=== PATIENT | female | born 1960 | race Caucasian/White ===

== ENCOUNTER → 2020-08-07 14:44 | Outpatient (BNVA) | payer BC, SELFPAY | PROVIDERS: Family Provider Family Medicine; PCP Family Medicine; Visit Provider Obstetrics & Gynecology | DX: R30.0 Dysuria (principal); N89.8 Other specified noninflammatory disorders of vagina; N94.9 Unspecified condition associated with female genital organs and menstrual cycle | CPT/HCPCS: 81000; 87070; 87086; 87205; 87210 ==

== ENCOUNTER → 2020-08-31 12:33 | Outpatient (BNVA) | payer BC, SELFPAY | PROVIDERS: Family Provider Family Medicine; PCP Family Medicine; Visit Provider Nurse Practitioner | DX: Z20.822 Contact with and (suspected) exposure to COVID-19 (principal); Z11.59 Encounter for screening for other viral diseases | CPT/HCPCS: 87635; 87880 ==

== ENCOUNTER 2020-10-02 13:56 | Outpatient (CLI) | payer MEDICARE, SELFPAY ==
--- NOTE | 2020-10-02 14:04 | USCV_ITS ---
Rafia Sandhu Age: 60 Gender: F : 1960 Exam Date: 10/02/2020 14:28 Ordering Phys: Julio Sellers DO Technologist: Ailyn Martino [place] [facility] [place] Indication: EDEMA LEG PAIN HISTORY: Lower extremity edema. Lower extremity pain. PROCEDURES: Venous duplex imaging was performed in only the left lower extremity. The following venous structures were evaluated: common femoral vein, profunda vein, proximal portion of the greater saphenous vein, superficial femoral vein, and the popliteal vein. In addition, the posterior tibial and peroneal trunk were evaluated. Serial compression, augmentation maneuvers, and spectral Doppler flow evaluation were performed. FINDINGS: Normal 2-D Doppler and augmentation and compressibility throughout the lower extremity venous structures. Additional imaging through the proximal calf veins also reveals no thrombus. Limited evaluation of the greater saphenous vein is patent with no thrombus. CONCLUSIONS No DVT right lower extremity. Dr. Bethany Owusu DO (Electronically Signed) Final Date: 02 October 2020 16:11 S
== END 2020-10-02 13:57 | disposition home or self-care (01) ==
LOC: RAD 14:01
PROVIDERS: PCP Family Medicine; Visit Provider Family Medicine
DX: R60.0 Localized edema (principal); M79.604 Pain in right leg
CPT/HCPCS: 93971

== ENCOUNTER → 2021-06-29 14:04 | Outpatient (BNVA) | payer MEDICARE, SELFPAY | PROVIDERS: PCP Family Medicine; Visit Provider Nurse Practitioner Family | DX: N95.2 Postmenopausal atrophic vaginitis (principal); N39.0 Urinary tract infection, site not specified | CPT/HCPCS: 81003; 87086 ==

== ENCOUNTER → 2021-08-18 11:56 | Outpatient (BNVA) | payer MEDICARE, SELFPAY | PROVIDERS: PCP Family Medicine; Visit Provider Urology | DX: N39.0 Urinary tract infection, site not specified (principal) | CPT/HCPCS: 81003; 87086 ==

== ENCOUNTER 2021-09-22 15:03 | Outpatient (CLI) | payer MEDICARE, SELFPAY ==
--- NOTE | 2021-09-22 15:19 | XR_ITS ---
WS: [id number] Acute abdomen series, 09/22/2021 Clinical Data: ABD PAIN Comparison: None. Findings: In the chest there are no nodules, masses or effusions. The heart is normal. The pulmonary vascularity is not increased. There is a levoscoliosis of the thoracic spine. No free air is seen beneath the diaphragms. No abnormal intra-abdominal masses or calcifications are seen. There is a dextroscoliosis of the lumbar spine. There is air in the stomach, small bowel and co sharifa but no evidence of obstruction. There is a moderate amount of fecal material throughout the colon . XR/XR acute abdomen series [id number] Impression: Negative acute abdomen series.
== END 2021-09-22 15:04 | disposition home or self-care (01) ==
PROVIDERS: PCP Family Medicine; Visit Provider Clinical Nurse Specialist Adult Health
DX: R10.9 Unspecified abdominal pain (principal)
CPT/HCPCS: 74022

== ENCOUNTER 2022-01-11 20:39 | Emergency (ER) | payer MEDICARE, SELFPAY ==
[2022-01-11] VITALS (7 sets, daily range): BP systolic 113–142; BP diastolic 73–88; PULSE 66–77; RESP 17–18; TEMP 36.9; O2SAT 93–99; BMI 26.5
--- NOTE | 2022-01-11 21:19 | W.ED.ABDPA2 ---
HPI - Abdominal Pain General: Chief Complaint: Abdominal Pain Stated Complaint: abd pain, back pain Time Seen by Provider: 01/11/22 21:19 History of Present Illness: Ms. Sandhu is a 61-year-old lady with history of recurrent UTI and atrial tachycardia presenting to the emergency department due to abdominal pain. Symptom onset was approximately 4 hours prior to arrival at rest and subacute. She endorses severe lower abdominal pain associated with back pain. She has generalized unwell feeling nausea but no vomiting. She has had a normal bowel movement at approximately 4 PM today. She always has urinary symptoms though these are not necessarily worse than baseline. Overall course of symptoms has persisted. No other specific changes in health, exacerbating, or alleviating factors identified. Onset (ago): hour(s) Location: RLQ and LLQ Severity: severe Quality: cramping, stabbing and aching Radiation: back Associated Symptoms: Reports nausea Review of Systems General: Reports: 10 or more systems reviewed and unremarkable except in HPI and below GI: Reports: nausea PFSH ED PFSH: Medical History Cardiac rhythm disturbance History of recurrent UTIs Interstitial cystitis Recurrent UTI Vaginal discharge Surgical History History of bladder surgery Has had bladder distention performed on 2 different occasions. S/P dilation and curettage Family History Mother , at age 75. Lung cancer Hypertension Father , at age 75. Lung cancer Grandmother Diabetes Paternal Family/Other Diabetes Maternal Aunt. Social History Alcohol intake: current Alcohol intake frequency: 0-2 Drinks per Day Marital status: / Current occupational status: retired Physical Exam Const: COMMON NORMALS: alert GENERAL APPEARANCE: cooperative and well developed HENMT: COMMON NORMALS: normocephalic and atraumatic HEAD & SCALP: normocephalic and atraumatic Eye: COMMON NORMALS: conjunctivae normal CONJUNCTIVA: Yes conjunctivae normal SCLERA: sclerae normal Neck/C-Spine: COMMON NORMALS: supple GENERAL: Yes trachea midline Resp: COMMON NORMALS: clear to auscultation bilaterally EFFORT & INSPECTION: Yes able to speak in complete sentences AUSCULTATION: clear to auscultation bilaterally Cardio: COMMON NORMALS: regular rate and regular rhythm RATE: regular rate RHYTHM: regular rhythm GI: COMMON NORMALS: Soft to palpation PALPATION: Yes Soft to palpation, Yes Tenderness to palpation present (GI), No Guarding due to palpation present (GI) and No Rigid due to palpation PERCUSSION: normal to percussion Extremity: GENERAL: Yes normal exam except as noted and No edema Neuro: COMMON NORMALS: moves all extremities SENSORIUM/ORIENTATION: Yes alert and No Orientation impaired Psych: COMMON NORMALS: mental status grossly normal and Normal thought process present THOUGHT PROCESS: Normal thought process present Course ED course: - Patient was seen and evaluated by me at bedside - Patient placed on cardiac monitors, IV access obtained - Initial evaluation notable for exam as above - Labs personally interpreted by me. EKG showing sinus rhythm with no STEMI. -Fluids, symptom treatment ordered - Labs notable for leukocytosis, hemoconcentration. Metabolic panel without acute derangement. - Imaging notable for mildly dilated loops of small bowel suggesting ileus versus enteritis - Upon serial reexamination after treatment the patient was improved with treatment. She tolerated p.o. - Based on patient history, evaluation, and testing as interpreted the most likely cause of the patient's condition is ileus versus enteritis. I did discuss possibility of ileus which could potentially worsen. Patient comfortable with trial of symptoms management at home - The results of ED evaluation were discussed with the patient including prescriptions and/or symptomatic cares (if applicable) including appropriate and responsible use, followup plan, and return precautions. The patient verbalized understanding and felt safe for discharge. - Patient discharged in satisfactory condition. Note: Click bubbles or prepopulated mandujano in note writing are used for assistance with data collection and billing and are inherently more limited than narrative and other text portions of this note. Please use narrative for additional clinical history and defer to narrative/free test for any case of contradictory information. If information appears in only free text or click bubble it should be considered present or absent as reported. Please contact note automatic typewriter inspector for clarifications of clinical information or contradictory information. MDM is a brief summary, contradictory or erroneous seeming information should be clarified and full note should be reviewed. Vital Signs: Vital signs: Vital Signs Temperature 98.5 F 01/11/22 20:48 Pulse Rate 63 01/12/22 03:30 Respiratory Rate 18 01/12/22 03:30 Blood Pressure 137/80 01/12/22 03:30 Pulse Oximetry 97 01/12/22 03:30 MDM - Abdominal Pain Medical Decision Making 61-year-old lady presenting with abdominal pain. Patient found to have dehydration and enteritis versus ileus. Tolerated p.o. and comfortable with trial of symptom management at home with strict return precautions. Medical Records I reviewed the patient's medical records. Lab Data I reviewed the patient's lab results. : 01/11/22 21:30 01/11/22 21:30 Labs/Radiology: Radiology Impressions Abdomen/Pelvis CT 01/11/22 22:18 IMPRESSION: 1. Severe L4-L5 degenerative disc disease and spondylosis with Modic type III sclerotic endplate degenerative changes. 2. Mildly dilated loops of small bowel up to 2.9 cm in diameter suggesting possible ileus versus enteritis. No definite transition point. Laboratory Results WBC 13.3 10^3/uL (4.0-10.0) H 01/11/22 21:30 RBC 5.48 10^6/uL (4.1-5.3) H 01/11/22 21:30 Hgb 16.4 g/dL (11.5-15.3) H 01/11/22 21:30 Hct 48.8 % (37.0-47.0) H 01/11/22 21:30 MCV 89.1 fl (81-99) 01/11/22 21:30 MCH 29.9 pg (28.0-34.0) 01/11/22 21: MCHC 33.6 g/dL (30.0-36.0) 01/11/22 21:30 RDW 13.1 % (12.1-15.1) 01/11/22 21:30 Plt Count 304 10^3/cmm (130-400) 01/11/22 21:30 MPV 11.1 fL (7.4-10.4) H 01/11/22 21:30 Neut % (Auto) 83.9 % 01/11/22 21:30 Lymph % (Auto) 9.2 % 01/11/22 21:30 [place] % (Auto) 5.7 % 01/11/22 21:30 Eos % (Auto) 0.5 % 01/11/22 21:30 Baso % (Auto) 0.3 % 01/11/22 21:30 Neut # (Auto) 11.13 10^3/uL (1.8-7.7) H 01/11/22 21:30 Lymph # (Auto) 1.2 10^3/uL (0.8-4.8) 01/11/22 21:30 [place] # (Auto) 0.8 10^3/uL (0.2-0.9) 01/11/22 21:30 Eos # (Auto) 0.1 10^3/uL (0.0-0.8) 01/11/22 21: Baso # (Auto) 0.0 10^3/uL (0.0-0.1) 01/11/22 21:30 Nucleated RBC % (auto) 0 % 01/11/22 21: Nucleated RBCs # 0.0 /100WBC 01/11/22 21:30 Sodium 139 mmol/L (136-145) 01/11/22 21: Potassium 3.7 mmol/L (3.5-5.1) 01/11/22 21: Chloride 102 mmol/L (98-107) 01/11/22: Carbon Dioxide 22 mmol/L (22-29) 01/11/22: Anion Gap 18.7 (5-19) 01/11/22 21:30 BUN 10 mg/dL (8-23) 01/11/22 21:30 Creatinine 0.6 mg/dL (0.5-0.9) 01/11/22:30 GFR Calculation 102.0 mL/min (90-130) 01/11/22 21:30 Glucose 123 mg/dL (65-115) H 01/11/22 21:30 Calculated Osmolality 288 mOsm/kg (285-295) 01/11/22:30 Lactic Acid 0.8 mmol/L (0.5-2.2) 01/11/22 23:20 Calcium 9.0 mg/dL (8.5-10.5) 01/11/22 21:30 Total Bilirubin 1.2 mg/dL (0.15-1.2) 01/11/22 21:30 AST 20 U/L (0-32) 01/11/22 21:30 ALT 13 U/L (0-33) 01/11/22 21:30 Alkaline Phosphatase 78 IU/L (35-105) 01/11/22 21:30 Troponin T Baseline 6 ng/L (0-10) 01/11/22 21:30 Troponin T 120 Minute 6.77 ng/L (0-10) 01/11/22 23:20 Delta Troponin T 0.77 ABS# (0-10) 01/11/22 23:20 Total Protein 7.3 g/dL (6.6-8.7) 01/11/22 21:30 Albumin 4.8 g/dL (3.5-5.2) 01/11/22 21:30 Globulin 2.5 g/dL (1.3-4.6) 01/11/22 21:30 Lipase 24 U/L (13-60) 01/11/22 21:30 Discharge Plan Discharge Patient Disposition: Home Clinical Impression: Enteritis, Dehydration Condition: Stable Prescriptions: New ciprofloxacin HCl 750 mg tablet 750 mg PO DAILY Qty: 5 0RF ondansetron 4 mg tablet,disintegrating 4 mg PO TID PRN (Reason: nausea and vomiting) Qty: 15 0RF oxycodone 5 mg tablet 5 mg PO Q4H PRN (Reason: pain) Qty: 10 0RF No Action alprazolam [Xanax] 0.5 mg tablet 0.5 mg PO DAILY 0RF Rx Instructions: TAKES 1/2 DAILY ciprofloxacin HCl 500 mg tablet 500 mg PO BID Qty: 60 1RF gabapentin 600 mg tablet 600 mg PO DAILY 0RF Rx Instructions: TAKES 1/4 TAB diltiazem HCl [Cardizem LA] 180 mg tablet extended release 24 hr 180 mg PO DAILY 0RF Discharge Orders: Discharge ED (Routine); Ordered 01/12/22 Ordered By: Rodolfo Rodríguez Referrals: Julio Sellers, [Primary Care Provider] - Discharge Diet: Advance as tolerated and Clear Liquid Discharge Activity: Increase activity as tolerated Patient Instructions: Ileus (ED), Enteritis (ED), Opioid Safety Activity Restrictions/Additional Instructions: Thank you for visiting the emergency department. You were seen and evaluated for abdominal pain. The exact cause of your symptoms is unclear however likely related to either enteritis or ileus. You will be treated with antibiotics, pain control, nausea medications. Please only drink clear liquids for the next 24 hours followed by full liquids and then advance as tolerated with bland small amounts of food frequently. Return to the emergency department for uncontrolled symptoms or anything else that you are concerned about a feel needs emergency department evaluation. Coding Level of Care Code ED Tick Eradicator for Mark Sebastian
--- NOTE | 2022-01-11 21:30 | ECG_ITS ---
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 Measurements Intervals [place] Rate: 67 P: 32 [place]: 186 QRS: 34 QRSD: 96 T: 48 QT: 395 QTc: 419 Interpretive Statements SINUS RHYTHM POSSIBLE INFERIOR MYOCARDIAL INFARCTION , PROBABLY OLD [30 ms Q WAVE IN II/aVF] Compared to ECG 08/19/2018 19:33:51 Myocardial infarct finding now present Sinus tachycardia no longer present Electronically Signed On 01-12-2022 17:14:30 CDT by Xiang Gibson M.D. [email or web address] [facility] Centerhol[id number]
[2022-01-11 21:49] LABS: Basophils % 0.3 %; Eosinophils # 0.1 10^3/uL (0.0-0.8); Eosinophils % 0.5 %; Hematocrit 48.8 % (37.0-47.0); Hemoglobin 16.4 g/dL (11.5-15.3); Lymphocytes # 1.2 10^3/uL (0.8-4.8); Lymphocytes % 9.2 %; Mean Corpuscular HGB Conc 33.6 g/dL (30.0-36.0); Mean Corpuscular Hemoglobin 29.9 pg (28.0-34.0); Mean Corpuscular Volume 89.1 fl (81-99); Mean Platelet Volume 11.1 fL (7.4-10.4); Monocytes # 0.8 10^3/uL (0.2-0.9); Monocytes % 5.7 %; Neutrophils # 11.13 10^3/uL (1.8-7.7); Neutrophils % 83.9 %; Nucleated Red Blood Cells % 0 %; Platelet Count 304 10^3/cmm (130-400); Red Blood Count 5.48 10^6/uL (4.1-5.3); Red Cell Distribution Width 13.1 % (12.1-15.1); White Blood Count 13.3 10^3/uL (4.0-10.0)
[2022-01-11] MEDS: lactated ringers 1,000 ML 999 ML IV (21:55)
[2022-01-11] MEDS: ondansetron 2 mg/ML SDV 2 mL 4 MG IVP (22:01)
[2022-01-11] MEDS: morphine 4 mg/mL SDV 1 mL IVP (22:02)
[2022-01-11 22:06] LABS: Alanine Aminotransferase 13 U/L (0-33); Albumin Level 4.8 g/dL (3.5-5.2); Alkaline Phosphatase 78 IU/L (35-105); Aspartate Amino Transferase 20 U/L (0-32); Blood Urea Nitrogen 10 mg/dL (8-23); Carbon Dioxide 22 mmol/L (22-29); Chloride 102 mmol/L (98-107); Globulin 2.5 g/dL (1.3-4.6); Glucose 123 mg/dL (65-115); Lipase 24 U/L (13-60); Osmolality Calculated 288 mOsm/kg (285-295); Sodium 139 mmol/L (136-145); Total Bilirubin 1.2 mg/dL (0.15-1.2); Total Protein 7.3 g/dL (6.6-8.7); Troponin(5th) Baseline 6 ng/L (0-10)
[2022-01-11 22:08] LABS: Anion Gap 18.7 (5-19); Potassium 3.7 mmol/L (3.5-5.1)
--- NOTE | 2022-01-11 22:18 | CTR_ITS ---
PROCEDURE INFORMATION: Exam: CT Abdomen And Pelvis Without Contrast Exam date and time: 01/11/2022 10:41 PM Age: 61 years old Clinical indication: Nausea and vomiting; Abdominal pain; Generalized; Additional info: Generalized abd pain, back pain TECHNIQUE: Imaging protocol: Computed tomography of the abdomen and pelvis without contrast. Radiation optimization: All CT scans at this facility use at least one of these dose optimization techniques: automated exposure control; mA and/or kV adjustment per patient size (includes targeted exams where dose is matched to clinical indication); or iterative reconstruction. COMPARISON: CT abdomen pelvis con [id number] 08/19/2018 10:55 PM RADIATION DOSE METRICS: Total DLP (mGy-cm): 1680.4 FINDINGS: Liver: Normal. No mass. Gallbladder and bile ducts: Normal. No calcified stones. No ductal dilation. Pancreas: Normal. No ductal dilation. Spleen: Calcified splenic granulomas. Adrenal glands: Normal. No mass. Kidneys and ureters: Normal. No hydronephrosis. Stomach and bowel: Mildly dilated loops of small bowel up to 2.9 cm in diameter suggesting possible ileus versus enteritis. No definite transition point. Appendix: Normal appendix. Intraperitoneal space: Unremarkable. No free air. No significant fluid collection. Vasculature: Calcification of the abdominal aorta and/or iliac arteries consistent with atherosclerotic vessel disease. One or more calcified pelvic phleboliths. Lymph nodes: Unremarkable. No enlarged lymph nodes. Urinary bladder: Unremarkable as visualized. Reproductive: Unremarkable as visualized. Bones/joints: Severe L4-L5 degenerative disc disease and spondylosis with Modic type III sclerotic endplate degenerative changes. Grade 1 anterior spondylolytic spondylolisthesis of L4 on L5. Soft tissues: Unremarkable. CT/CT abdomen pelvis [facility] [id number] IMPRESSION: 1. Severe L4-L5 degenerative disc disease and spondylosis with Modic type III sclerotic endplate degenerative changes. 2. Mildly dilated loops of small bowel up to 2.9 cm in diameter suggesting possible ileus versus enteritis. No definite transition point.
[2022-01-11 23:45] LABS: Lactic Sepsis W/Reflex 0.8 mmol/L (0.5-2.2)
[2022-01-11 23:47] LABS: Troponin 5 2HR 6.77 ng/L (0-10)
[2022-01-11 23:56] LABS: Troponin 5 2HR Delta 0.77 ABS# (0-10)
[2022-01-12] VITALS (8 sets, daily range): BP systolic 100–137; BP diastolic 62–80; PULSE 63–82; RESP 12–18; O2SAT 94–98
[2022-01-12] MEDS: lidocaine 2% viscous 15 ML, aluminum-mag hydrox-simethicon 30 ML, sucralfate oral liq 1 GM PO (01:43)
== END 2022-01-12 03:30 | disposition home or self-care (01) ==
PROVIDERS: Physician Assistant; Emergency Provider Emergency Medicine; PCP Family Medicine
DX: K52.9 Noninfective gastroenteritis and colitis, unspecified (principal); E86.0 Dehydration; R11.0 Nausea; Z87.440 Personal history of urinary (tract) infections
CPT/HCPCS: 36415; 74176; 80053; 83605; 83690; 84484; 85025; 93005; 96361; 96374; 96375; 99285; J2270; J2405

== ENCOUNTER → 2022-03-03 00:01 | Outpatient (BNVA) | payer MEDICARE, SELFPAY | PROVIDERS: PCP Family Medicine; Visit Provider Family Medicine | DX: L02.413 Cutaneous abscess of right upper limb (principal) | CPT/HCPCS: 87070 ==

== ENCOUNTER 2022-03-16 17:16 | Outpatient (CLI) | payer MEDICARE, SELFPAY ==
--- NOTE | 2022-03-16 17:25 | XRR_ITS ---
PROCEDURE INFORMATION: Exam: XR Right Ankle Exam date and time: 03/16/2022 5:25 PM Age: 61 years old Clinical indication: Pain; Right; Patient HX: Swollen RT ankle. 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 Views: 3 or more views. COMPARISON: No relevant prior studies available. FINDINGS: Bones/joints: Calcaneal spur. Chronic avulsion fracture fragment corticated adjacent to the distal fibula. Acute oblique fracture distal fibula metaphysis without significant angulation. 1-2 mm lateral displacement of distal fracture fragment. Soft tissues: Soft tissue edema is most pronounced laterally. XR/XR ankle RT min 3V* [id number] IMPRESSION: Acute oblique fracture distal fibula metaphysis.
== END 2022-03-16 17:17 | disposition home or self-care (01) ==
LOC: RAD 17:19
PROVIDERS: PCP Family Medicine; Visit Provider Family Medicine
DX: M25.571 Pain in right ankle and joints of right foot (principal); S82.831A Other fracture of upper and lower end of right fibula, initial encounter for closed fracture; X58.XXXA Exposure to other specified factors, initial encounter
CPT/HCPCS: 73610

== ENCOUNTER 2022-03-25 21:09 | Emergency (ER) | payer MEDICARE, SELFPAY ==
[2022-03-25 22:02] VITALS: BP 125/82; PULSE 68; RESP 18; TEMP 36.6; O2SAT 98; BMI 26.5
--- NOTE | 2022-03-25 22:10 | USR_ITS ---
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 She is awaiting care from orthopedics. ; Additional info: RO dvt TECHNIQUE: Imaging protocol: Real-time Duplex ultrasound of the Right Lower Extremity with 2-D horn scale, color Doppler flow and spectral waveform analysis with image documentation. Limited exam was focused on the right lower extremity veins. COMPARISON: No relevant prior studies available. FINDINGS: Right deep veins: Unremarkable. The common femoral, femoral, proximal profunda femoral and popliteal veins are patent without thrombus. Normal Doppler waveforms. Normal compressibility and/or augmentation response. Right superficial veins: Unremarkable. Saphenofemoral junction is patent without thrombus. Soft tissues: Unremarkable. US/[place] [id number] IMPRESSION: No evidence of deep vein thrombosis, right lower extremity.
--- NOTE | 2022-03-26 00:16 | ED_ITS ---
HPI - Extremity Problem General: Chief complaint: Extremity Injury, Lower Stated complaint: Right leg pain Time Seen by Provider: 03/26/22 00:15 History of Present Illness: 61-year-old female comes in today with complaints of swelling and redness to the right lower extremity. Patient has a fracture to her fibula. Patient was concerned it might be a blood clot. Patient appears nontoxic. Patient appears in mild pain. 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 Associated symptoms: Deny chest pain Review of Systems General: Reports: 10 or more systems reviewed and unremarkable except in HPI and below Card: Denies: chest pain Resp: Denies: dyspnea Musc: Reports: extremity pain and extremity swelling PFS ED PFSH: Medical History Cardiac rhythm disturbance History of recurrent UTIs Interstitial cystitis Recurrent UTI Vaginal discharge Surgical History History of bladder surgery Has had bladder distention performed on 2 different occasions. S/P dilation and curettage Family History Mother , at age 75. Lung cancer Hypertension Father , at age 75. Lung cancer Grandmother Diabetes Paternal Family/Other Diabetes Maternal Aunt. Social History Alcohol intake: current Alcohol intake frequency: 0-2 Drinks per Day Marital status: / Current occupational status: retired Physical Exam Neck/C-Spine: COMMON NORMALS: full ROM Resp: COMMON NORMALS: normal respiratory effort Cardio: COMMON NORMALS: regular rate and regular rhythm RATE: regular rate RHYTHM: regular rhythm Extremity: NARRATIVE EXTREMITY EXAM: Ecchymosis is noted to the left inner thigh and the posterior right lower leg. RIGHT LOWER EXTREMITY: Yes lower leg (Increased swelling with anterior redness to the right lower leg.) Right lower leg: Yes inspection, Yes palpation and Yes neurovascular exam (Pulses intact, prompt cap refill.) Course Vital Signs: Vital signs: Vital Signs Temperature 98.1 F 03/26/22 01:01 Pulse Rate 60 03/26/22 01:01 Respiratory Rate 16 03/26/22 01:01 Blood Pressure 125/82 03/25/22 22:02 Pulse Oximetry 98 03/26/22 01:01 Oxygen Delivery Me thod 03/25/22 22:02 MDM - Extremity (Nontraumatic) Medical Decision Making Patient comes in today for concerns of possible blood clot to the right lower leg. On exam patient has distal pulses. Patient does have some increased redness and swelling to the right lower leg. Patient has a known fracture to the fibula from injury approximately 1 week ago. Differential diagnosis includes but not limited to peripheral vascular disease, DVT, cellulitis, swelling secondary to injury. Ultrasound the extremity noted no DVT. Patient may have some mild cellulitis to the extremity due to some increased warmth and redness to the anterior aspect of the right lower leg. We will go ahead and cover with cephalexin 500 mg 3 times a day for 7 days. Patient was recommended to wear her boot as directed but does not like wearing it as she states it causes more discomfort to her ankle. Patient reported understanding of care plan and need for continued scheduled appointments as directed by her primary care to her orthopedist. Lab Data Radiology Impressions Venous Duplex 03/25/22 22:10 IMPRESSION: No evidence of deep vein thrombosis, right lower extremity. Discharge Plan Discharge Patient Disposition: Home Clinical Impression: Anxiety Fracture of right fibula Qualifiers: Encounter type: subsequent encounter Fibula location: distal Fracture type: closed Fracture morphology: unspecified fracture morphology Fracture healing: with routine healing Qualified Code(s): S82.831D - Other fracture of upper and lower end of right fibula, subsequent encounter for closed fracture with routine healing Cellulitis Qualifiers: Site of cellulitis: extremity Site of cellulitis of extremity: lower extremity Laterality: right Qualified Code(s): L03.115 - Cellulitis of right lower limb Condition: Stable Prescriptions: New cephalexin 500 mg capsule 500 mg PO TID 7 Days Qty: 21 0RF No Action gabapentin 600 mg tablet 600 mg PO DAILY Rx Instructions: TAKES 1/4 TAB diltiazem HCl [Cardizem LA] 180 mg tablet extended release 24 hr 180 mg PO DAILY alprazolam [Xanax] 0.5 mg tablet 0.5 mg PO DAILY Qty: 45 0RF Rx Instructions: TAKE 1 tab PO BID as needed triamcinolone acetonide 0.1 % cream 1 applic topical BID Qty: 15 6RF (DME) walking boot See Rx Instructions .Route .MEDSUPPLY Qty: 1 0RF Rx Instructions: Wear boot while ambulating; ondansetron 4 mg tablet,disintegrating 4 mg PO TID PRN (Reason: nausea and vomiting) Qty: 15 0RF oxycodone 5 mg tablet 5 mg PO Q4H PRN (Reason: pain) Qty: 10 0RF Discharge Orders: Discharge ED (Routine); Ordered 03/26/22 Ordered By: Braden Montoya Referrals: Julio Sellers DO [Primary Care Provider] - Discharge Diet: Usual diet Discharge Activity: Increase activity as tolerated Patient Instructions: Ankle Fracture (ED) Activity Restrictions/Additional Instructions: Follow-up with primary care for refills on anxiety medicine. Drink plenty of water with medication. Continue with plan for orthopedic referral. Return to ER for new concerns. Coding Level of Care Code ED Software Installer for Mark Sebastian
[2022-03-26 01:01] VITALS: PULSE 60; RESP 16; TEMP 36.7; O2SAT 98
== END 2022-03-26 01:06 | disposition home or self-care (01) ==
PROVIDERS: Emergency Provider Nurse Practitioner Family; PCP Family Medicine
DX: S82.831A Other fracture of upper and lower end of right fibula, initial encounter for closed fracture (principal); L03.115 Cellulitis of right lower limb; M79.604 Pain in right leg; F41.9 Anxiety disorder, unspecified; X58.XXXA Exposure to other specified factors, initial encounter
CPT/HCPCS: 93971; 99284

== ENCOUNTER → 2023-01-11 10:12 | Outpatient (BNVA) | payer MEDICARE, SELFPAY | PROVIDERS: PCP Family Medicine; Visit Provider Nurse Practitioner | DX: E55.9 Vitamin D deficiency, unspecified (principal); R53.83 Other fatigue; R19.5 Other fecal abnormalities; E04.9 Nontoxic goiter, unspecified | CPT/HCPCS: 80053; 82306; 82607; 84443; 85025 ==

== ENCOUNTER 2023-02-03 12:19 | Outpatient (CLI) | payer MEDICARE, SELFPAY ==
--- NOTE | 2023-02-03 12:45 | US_ITS ---
WS: [id number] ULTRASOUND THYROID TECHNIQUE: Ultrasound of the thyroid. CLINICAL INFORMATION: E04.9 - Nontoxic goiter, unspecified COMPARISON: None. FINDINGS: Heterogeneous multinodular goiter. Thyroid: Heterogeneous multinodular goiter. Multiple bilateral nodules with the largest described bel ow Right thyroid lobe: 4.8 cm x 1.7 cm x 1.5 cm Solid well-circumscribed nodule mid RIGHT thyroid measuring 1.3 x 1.1 x 1.4 cm. Smaller inferior RIGH T thyroid nodule measuring 1.1 x 1.7 x 1.0 cm Left thyroid lobe: 4.5 cm x 1.5 cm x 1.1 cm. Solid well-circumscribed inferior LEFT thyroid nodule measuring 1.1 x 0.8 x 1.0 cm Isthmus: 0.2 mm. Cervical lymphadenopathy: None. US/US thyroid [id number] IMPRESSION: 1. Heterogeneous enlarged thyroid most compatible with multinodular goiter. 2. Largest well-circumscribed nodule on the RIGHT measure 1.3 x 1.1 x 1.4 cm i n the mid RIGHT thyroid 3. Largest on the LEFT measures 1.1 x 0.8 x 1.0 cm 4. Recommend 12 month follow-up.
== END 2023-02-03 12:20 | disposition home or self-care (01) ==
PROVIDERS: PCP Nurse Practitioner; Visit Provider Nurse Practitioner
DX: E04.9 Nontoxic goiter, unspecified (principal)
CPT/HCPCS: 76536; 80053; 82306; 82607; 84443; 85025

== ENCOUNTER → 2023-08-08 15:48 | Outpatient (BNVA) | payer MEDICARE, SELFPAY | PROVIDERS: PCP Nurse Practitioner; Visit Provider Nurse Practitioner | DX: F32.A Depression, unspecified (principal) | CPT/HCPCS: 80053; 80061; 84439; 84443; 84481; 86800 ==

== ENCOUNTER → 2023-12-13 12:32 | Outpatient (BNVA) | payer MEDICARE, SELFPAY | PROVIDERS: PCP Nurse Practitioner; Visit Provider Nurse Practitioner | DX: J02.9 Acute pharyngitis, unspecified (principal) | CPT/HCPCS: 87071; 87880 ==

== ENCOUNTER 2023-12-25 17:49 | Outpatient (CLI) | payer MEDICARE, SELFPAY ==
--- NOTE | 2023-12-25 18:55 | XRR_ITS ---
PROCEDURE INFORMATION: Exam: XR Thoracic Spine Exam date and time: 12/25/2023 7:02 PM Age: 63 years old Clinical indication: Injury or trauma; Patient HX: Mid/lower back/ lt rib pain post fall today; Additional info: Fall/back pain TECHNIQUE: Imaging protocol: Radiologic exam of the thoracic spine. Views: 3 views. COMPARISON: CR XR lumbar spine 2-3V* [id number] 12/25/2023 7:02 PM FINDINGS: Bones/joints: S shaped [id number] thoracolumbar scoliosis is seen on the AP view. Lateral view demonstrates mild midthoracic kyphosis. Thoracic vertebral body heights appear maintained. No significant vertebral compression deformity. Mild spondylotic change. No fracture or subluxation. Soft tissues: No significant focal soft tissue abnormality. XR/XR thoracic spine 3V* [id number] IMPRESSION: Mild spondylotic change. [id number] thoracolumbar scoliosis. No fracture or subluxation is seen.
--- NOTE | 2023-12-25 18:55 | XRR_ITS ---
PROCEDURE INFORMATION: Exam: XR Left Ribs Exam date and time: 12/25/2023 7:02 PM Age: 63 years old Clinical indication: Patient HX: Mid/lower back/ lt rib pain post fall today; Additional info: Fall/rib pain TECHNIQUE: Imaging protocol: Radiologic exam of the left ribs. Views: 2 views. COMPARISON: CR XR chest 1V [id number] 08/19/2018 9:08 PM FINDINGS: Bones/joints: [id number] thoracolumbar scoliosis. Views of the left ribs were performed. No fracture identified, and particularly no displaced rib fracture is seen. Lungs: No infiltrate or consolidation. Pleural space: No pleural effusion or pneumothorax. Heart/Mediastinum: Cardiac size is within normal limits. Soft tissues: Unremarkable. XR/XR ribs LT 2V* [id number] IMPRESSION: No acute findings.
--- NOTE | 2023-12-25 19:01 | XRR_ITS ---
PROCEDURE INFORMATION: Exam: XR Lumbosacral Spine Exam date and time: 12/25/2023 7:02 PM Age: 63 years old Clinical indication: Lumbago; Patient HX: Mid/lower back/ lt rib pain post fall today TECHNIQUE: Imaging protocol: Radiologic exam of the lumbosacral spine. Views: 2 or 3 views. COMPARISON: CT abdomen pelvis wo con [id number] 01/11/2022 10:41 PM FINDINGS: Bones/joints: Moderate dextroscoliosis lower thoracic upper lumbar spine on the AP view. Lumbar vertebral body heights appear maintained, without significant vertebral compression deformity. Spondylotic change noted along with component of disc space narrowing or degenerative disc disease of the lumbar spine, with degenerative disc disease more prominent L4-L5. Lateral view demonstrates multilevel mild spondylolisthesis L2-L3, L3-L4, and L4-L5 levels, likely degenerative. No fracture or acute osseous abnormality. SI joints appear maintained. Visualized sacrum shows no acute abnormality. Soft tissues: No significant focal soft tissue abnormality. XR/XR lumbar spine 2-3V* [id number] IMPRESSION: 1. Lumbar spondylosis including component of degenerative disc disease, with multilevel degenerative mild spondylolisthesis L2 through L4 levels on the lateral view, along with moderate dextroscoliosis lower thoracic upper lumbar spine on the AP view. 2. No fracture or compression deformity.
== END 2023-12-25 17:50 | disposition home or self-care (01) ==
PROVIDERS: PCP Nurse Practitioner; Visit Provider Physician Assistant
DX: R07.81 Pleurodynia (principal); M54.9 Dorsalgia, unspecified; M43.16 Spondylolisthesis, lumbar region; M47.814 Spondylosis without myelopathy or radiculopathy, thoracic region; M41.35 Thoracogenic scoliosis, thoracolumbar region
CPT/HCPCS: 71100; 72072; 72100